=== PATIENT | female | born 1985 | race Caucasian/White ===

== ENCOUNTER 2025-01-26 23:50 | Emergency (ER) | payer OTHER, SELFPAY ==
[2025-01-26 23:52] VITALS: BP 127/67
[2025-01-27] MEDS: NSS 1000 IV (01:10)
--- NOTE | 2025-01-27 01:11 | ED.GENMED ---
History of Present Illness
General
Chief Complaint: Abdominal Pain
Source: patient
Exam Limitations: none
Time Seen by Provider: 01/27/25 00:31
Nursing documentation reviewed up to this point in time: agreed with
History of Present Illness
History of Present Illness:
Patient is a 39-year-old female who presents to the emergency department for evaluation of abdominal pain. Patient reports symptoms which occurred tonight around 10 PM after eating at a barbecue. She describes a sharp pain and tightness sensation
across her upper abdomen with some radiation into her back. She states pain was so severe she felt nauseous however had no episodes of vomiting. She denies any fever or chills. She denies any dysuria. No chest pain or shortness of breath.
Patient reports feeling very bloated and as if she had to have a bowel movement although was unable to.
By evaluation�patient states pain has essentially improved.
Patient does report similar symptoms that occurred last night however they resolved, as well.
Review of Systems
Review of Systems
Allergies reviewed?: Yes
All Other Systems: ROS reviewed and negative except as documented in HPI and ROS
Phy Exam
Physical Exam
Physical Exam:
Vitals: Patient's vital signs are stable. Afebrile
General: Patient is well appearing, no acute distress. Nontoxic appearing
Skin: Warm and dry, no rashes or lesions
Head: Normocephalic, atraumatic
Eyes: Sclera nonicteric. EOMs intact. No nystagmus.
Throat: Protecting airway
Neck: Normal ROM, no cervical spine tenderness, no meningismus
Cardiac: Regular rate and rhythm, no murmurs.
Pulm: Normal respiratory effort, no wheezes, rales, rhonchi heard on exam
.
Abdomen: Abdomen soft. Very mild tenderness in right upper quadrant. No rebound tenderness or guarding. Negative Mendes sign
Extremities: No evidence of cyanosis or edema. Palpable DP pulses bilaterally
Neuro: AAOx3. Grossly intact.
Psychiatric: Normal affect.
Course
Orders/Labs/Results
Orders:
Orders
01/27/25 01:03
IV Insert/Care/Rem.- Treatment PRN
01/27/25 01:04
Test Result ONCE
01/27/25 01:06
Complete Blood Count/With Diff Urgent
Comprehensive Metabolic Panel Urgent
HCG, Serum Qualitative Screen Urgent
Comment: Notify provider if positive test present
Lipase Urgent
01/27/25 01:10
0.9% Sodium Chloride 1000 ml [Nss] 1,000 ml IV BOLUS
US Abdomen Complete/Upper Urgent
Comment:
Reason For Exam: postprandial upper abdominal pain
01/27/25 01:17
Urinalysis Reflex To Culture Urgent
Date Specimen was Collected: 01/27/25
Time Specimen was Collected: 01:03
Abnormal Lab Results
01/27/25
01:06
RBC 4.18 L 10^6/uL
(4.20-5.40)
Hct 36.0 L %
(37.0-47.0)
MPV 10.9 H fL
(7.4-10.4)
Absolute Monos (auto) 0.9 H 10^3/uL
(0.1-0.6)
Chloride 110 H mmol/L
(98-107)
Carbon Dioxide 21 L mmol/L
(22-30)
Alkaline Phosphatase 31 L U/L
(38-126)
01/27/25 01:06
01/27/25 01:06
Vital Signs
Initial and Last Documented VS:
Initial Vital Signs
Temp Pulse Resp BP Pulse Ox
98.4 F 74 16 127/67 100
01/26/25 23:52 01/26/25 23:52 01/26/25 23:52 01/26/25 23:52 01/26/25 23:52
Last Documented Vital Signs
Temp Pulse Resp BP Pulse Ox
98.4 F 74 16 127/67 100
01/26/25 23:52 01/26/25 23:52 01/26/25 23:52 01/26/25 23:52 01/27/25 01:11
MDM/Problems Addressed
Differential Diagnosis Includes:
Not limited to: Biliary colic, acute cholecystitis, choledocholithiasis, cholangitis, pancreatitis, gastritis, GERD, etc.
MDM/Problems Addressed:
39-year-old female who presents to the emergency department with upper abdominal pain which has since resolved. This occurred following eating at a barbecue with a similar episode last night. No associated fevers or vomiting. Patient has stable
vital signs on arrival. She is afebrile. On exam�patient very well-appearing, in no apparent distress. Heart regular rate and rhythm, lungs clear bilaterally. Abdomen soft with very mild tenderness in right upper abdomen without rebound
tenderness or guarding. Negative Mendes sign. Differential broad however lower suspicion for acute infectious process given symptoms have resolved completely. Will check labs, UA, abdominal ultrasound. Will give IV fluids. Patient declines any
analgesia or PPI at this time.
Update: Labs reviewed no clinically significant abnormalities on CBC or chemistry. Urine not infected. Abdominal ultrasound without evidence of gallstones or CBD dilation. A few incidental findings noted on kidney and spleen which were discussed
with patient and she will follow with PCP.
Update 2:35 AM: On reassessment�patient states she has 'complete improvement' in symptoms. She has no pain. She feels as if she may have passed flatus which completely improved symptoms. On repeat abdominal exam�her abdomen is soft and nontender
throughout without any areas of focal tenderness or guarding. At this point�very low suspicion for acute infectious process given patient is afebrile with benign abdominal exam and no leukocytosis, along with normal ultrasound. Did briefly discuss
proceeding with CT scan however feel not indicated at this time. Patient very comfortable with discharge home as she feels improved and will follow with primary care back in [place]. Very strict return precautions discussed. Patient
comfortable with plan.
Chronic conditions affecting care:
N/A
Acute Exacerbation and/or Progression of Chronic Illness:
N/A
*Radiology
Radiology exam reviewed: radiology read reviewed
*Pulse Oximetry
SaO2: 100
Oxygen Mode of Delivery: Room air
Patient hypoxic: no
*EKG
Interpreted by ED Provider?: NA
*Optics Technical Officer Interpretation
Rate: Optics Technical Officer- N/A
*Critical Care Note
Total Time (30-74mins, 75-104mins- exclusive of procedures): Not Applicable
ED Attending Note
-
Portions of this chart may have been created with voice recognition software.� Occasional wrong word or��sound alike� substitutions may have occurred due to the inherent limitations of voice recognition software.
Discharge Plan
Departure
Patient Disposition: Home (Routine Discharge)
Date of Disposition: 01/27/25
Time of Disposition: 02:36
Patient with high blood pressure during this ER visit?: No
Condition: Good
Discharge Problem:
Abdominal pain
Instructions: Abdominal Pain
Referrals:
UNKNOWN - PT DOES,NOT KNOW [Family Provider]
Activity Restrictions/Additional Instructions:
RETURN TO THE EMERGENCY DEPARTMENT WITH ANY FEVER, CHILLS, PERSISTENT/WORSENING ABDOMINAL PAIN, INTRACTABLE NAUSEA/VOMITING, SEVERE BACK PAIN, WORSENING IN CURRENT SYMPTOMS, OR ANY OTHER CONCERNS
- As discussed that your lab work and ultrasound showed no acute abnormalities today. There were a few incidental findings on your ultrasound which I did review with you. Please be sure that you follow these up with your primary care for further
imaging as needed.
- I would recommend a bland diet over the next few days. It is important stable hydrated. You can take [id number] Protonix for the next 2 weeks.
- Follow-up with your primary care for further evaluation/management and to ensure that your symptoms are improving
Monitor your symptoms closely and return to the emergency department with any acute worsening/new symptoms or any other concern
Interventions
Interventions:
*Risk Screen - Suicide Last Done: 01/26/25 23:52
*General Assessment Last Done: 01/26/25 23:52
*Neglect/Abuse Screening Last Done: 01/26/25 23:52
*ED- Fall Risk Assessment Last Done: 01/26/25 23:52
*ED COVID-19 Vaccine History Last Done: 01/26/25 23:52
HB-Vipbhc-Loxrkvjdir Assessment Last Done: 01/27/25 01:06
Discharge Date and Time
Print Language: ARABIC
[2025-01-27 01:30] LABS: HCG, Serum Qualitative Screen Negative
[2025-01-27 01:32] LABS: Hematocrit 36.0 % (37.0-47.0); Hemoglobin 12.6 g/dL (12.0-16.0); Mean Corp Hgb Conc. 35.0 g/dL (33.0-37.0); Mean Corpuscular Volume 86.1 fL (81.0-99.0); Nucleated Red Blood Cells % 0 %; Platelet Count 245 10^3/uL (130-400); Red Cell Dist. Width 13.6 % (11.5-14.5)
[2025-01-27 01:33] LABS: Urine Character Clear (Clear)
[2025-01-27 01:34] LABS: ALT (SGPT) 15 U/L (0-35); AST (SGOT) 20 U/L (14-36); Albumin 4.8 g/dl (3.5-5.0); Alkaline Phosphatase 31 U/L (38-126); Blood Urea Nitrogen 15 mg/dl (7-17); Calcium 10.0 mg/dl (8.4-10.2); Carbon Dioxide 21 mmol/L (22-30); Chloride 110 mmol/L (98-107); Estimated Creatinine Clearance 86 ml/min; Glucose 96 mg/dl (70-99); Lipase 79 U/L (23-300); Potassium 4.2 mmol/L (3.5-5.1); Sodium 140 mmol/L (135-145); Total Protein 7.4 g/dl (6.3-8.2); eGFR > 60.00
--- NOTE | 2025-01-27 02:25 | EDRN ---
Updated patient on lab results, patient resting comfortably at this time.
== END 2025-01-27 03:02 | disposition home or self-care (01) ==
LOC: EMR 23:50
PROVIDERS: Physician Assistant; EMERGENCY PHYSICIAN Emergency Medicine
DX: R10.9 Unspecified abdominal pain (principal)
CPT/HCPCS: 99284; 96360; 76700; 80053; 81003; 83690; 84703; 85025